=== PATIENT | female | born 1965 | race Caucasian/White ===

== ENCOUNTER 2020-10-29 14:30 | Emergency (ER) | payer SELFPAY ==
[~2020-10-29] VITALS: Ht 165.1 cm; Wt 79.0 kg
[2020-10-29 15:41] VITALS: BP 82/31
[2020-10-29] MEDS ORDERED: SODIUM CHLORIDE 0.9% 1,000 ML IV ONE (15:45)
[2020-10-29] MEDS ORDERED: ALPRAZOLAM 0.25 MG TABLET PO ONE (15:45)
[2020-10-29 16:35] LABS: BASOPHILS % 0.5 % (0.0-2.0); EOSINOPHILS % 1.7 % (0.0-5.0); HEMATOCRIT. 36.7 % (36.0-48.0); HEMOGLOBIN. 12.5 g/dL (12.0-16.0); LYMPHOCYTES % 11.8 % (20.0-50.0); MEAN CORPUSCULAR HEMOGLOBIN 35.3 pg (28.0-32.0); MEAN CORPUSCULAR VOLUME 103.9 fL (81.0-99.0); MEAN PLATELET VOLUME 9.1 fl (7.4-10.4); MONOCYTES % 9.7 % (2.0-8.0); NEUTROPHILS % 76.3 % (40.0-76.0); PLATELET 233 x1000/uL (130-400); RED BLOOD CELL COUNT 3.53 mill/uL (4.2-5.4); RED CELL DISTRIBUTION WIDTH 13.6 % (11.6-14.6)
[2020-10-29 16:39] LABS: CHLORIDE 102 mEq/L (98-107)
[2020-10-29 16:48] LABS: CREATINE KINASE 110 IU/L (26-192)
[2020-10-29 16:50] LABS: PROTHROMBIN TIME 10.5 sec (9.6-11.0)
[2020-10-29 16:53] LABS: C REACTIVE PROTEIN QUANT 6.4 mg/L (0.0-3.0)
== END 2020-10-29 15:59 | disposition left against medical advice (07) ==
LOC: ER 14:30 → CANBEDREQ 20:06
DX: R55 Syncope and collapse (principal); E87.6 Hypokalemia; F41.9 Anxiety disorder, unspecified; E66.9 Obesity, unspecified; Z68.29 Body mass index [BMI] 29.0-29.9, adult; T50.B95A Adverse effect of other viral vaccines, initial encounter; Y92.89 Other specified places as the place of occurrence of the external cause
CPT/HCPCS: 36415; 71045; 80053; 82550; 83605; 83615; 83690; 83880; 84145; 84484; 85025; 85384; 85610; 86140; 87040; 99284; J7030